=== PATIENT | male | born 1990 | race Caucasian/White ===

== ENCOUNTER 2022-05-21 00:08 | Emergency (ER) | payer OTHER ==
[~2022-05-21] VITALS: Ht 177.8 cm; Wt 86.2 kg
[~2022-05-21 00:08] MED LIST: CITA40TA22 PO; HYDR50CA5 PO; QUET300T2 PO; [UNRECOGNIZED DRUG - OTHER]
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
[2022-05-21 00:22] VITALS: BP_SYST 129
--- NOTE | 2022-05-21 00:27 | NUR ---
MD AT BEDSIDE WITH PATIENT FOR EVALUATION.
[2022-05-21 01:15] LABS: BASOPHILS # (AUTO) 0.1 K/uL (0.0-0.2); BASOPHILS % (AUTO) 0.6 % (0.0-2.0); EOSINOPHILS # (AUTO) 0.1 K/uL (0.0-0.4); EOSINOPHILS % (AUTO) 0.8 % (0.0-4.0); HEMATOCRIT 45.5 % (36-54); HEMOGLOBIN 15.6 g/dL (14.0-18.0); LYMPHOCYTES # (AUTO) 0.9 K/uL (1.0-5.5); LYMPHOCYTES % (AUTO) 10.7 % (20.5-51.5); MEAN CORPUSCULAR HEMOGLOBIN 30 pg (27-31); MEAN CORPUSCULAR HGB CONC 34 % (32-36); MEAN CORPUSCULAR VOLUME 87 fL (79.0-98.0); MONOCYTES # (AUTO) 0.3 K/uL (0.0-1.0); MONOCYTES % (AUTO) 3.5 % (1.7-9.3); NEUTROPHILS % (AUTO) 84.4 % (40.0-70.0); PLATELET COUNT (AUTO) 265 K/uL (130-430); RED BLOOD CELL COUNT(AUTO) 5.26 MIL/uL (4.2-6.2); RED CELL DISTRIBUTION WIDTH 12.6 % (9.0-15.0); WHITE BLOOD COUNT (AUTO) 8.3 K/uL (4.8-10.8)
[2022-05-21] MEDS ORDERED: LORazepam 1 MG TABLET PO ONE (01:15)
[2022-05-21 01:20] LABS: ANION GAP 7 (5-15); CALCIUM 9.5 mg/dL (8.4-11.0); CHLORIDE 102 mmol/L (98-107); GLUCOSE 104 mg/dL (70-99); UREA NITROGEN, BLOOD 17 mg/dL (8-21)
[2022-05-21 01:21] LABS: GFR AFRICAN AMERICAN 91 mL/min (>90)
[2022-05-21 01:25] LABS: ALANINE AMINOTRANSFERASE 25 U/L (12-78); ALBUMIN 4.7 g/dL (3.4-4.8); ASPARTATE AMINOTRANSFERASE 23 U/L (10-37); TOTAL BILIRUBIN 0.5 mg/dL (0.0-1.0)
[2022-05-21 01:27] LABS: ACETAMINOPHEN < 1 ug/mL (1-30)
[2022-05-21 01:28] LABS: ALCOHOL, BLOOD < 3 mg/dL (<10)
[2022-05-21 01:50] VITALS: BP_SYST 122
--- NOTE | 2022-05-21 01:53 | NUR ---
Patient given written and verbal discharge instructions and verbalizes understanding. ER MD Huynh discussed with patient the results and treatment provided. Patient in stable condition. ID arm band removed. Patient educated on pain management and to follow up with PMD. Opportunity for questions provided and answered.
== END 2022-05-21 01:50 | disposition home or self-care (01) ==
LOC: SED 00:08
DX: R44.3 Hallucinations, unspecified (principal); F41.9 Anxiety disorder, unspecified; F15.10 Other stimulant abuse, uncomplicated; Z79.899 Other long term (current) drug therapy; Z20.822 Contact with and (suspected) exposure to COVID-19
CPT/HCPCS: 99283; 87426; 80053; 85025; 36415; G0482; G0480; G0481